=== PATIENT | male | born 1970 | race Caucasian/White ===

== ENCOUNTER 2022-05-01 06:20 | Inpatient (IN) | payer BC ==
[2022-04-25 11:24] LABS: BASOPHILS % (AUTO) 0.6 % (0-1); EOSINOPHILS # (AUTO) 0.2 X10'3 (0-0.9); EOSINOPHILS % (AUTO) 2.6 % (0-6); LYMPHOCYTES # (AUTO) 2.1 X10'3 (1.1-4.8); LYMPHOCYTES % (AUTO) 27.7 % (21-51); MEAN CORPUSCULAR HEMOGLOBIN 29.6 PG (27.0-31.0); MEAN CORPUSCULAR HGB CONC 33.9 g/dL (33.0-36.5); MEAN CORPUSCULAR VOLUME 87.2 FL (78-98); MEAN PLATELET VOLUME 9.5 FL (7.4-10.4); MONOCYTES # (AUTO) 0.6 X10'3 (0-0.9); MONOCYTES % (AUTO) 8.2 % (2-12); NEUTROPHILS # (AUTO) 4.7 X10'3 (1.8-7.7); NEUTROPHILS % (AUTO) 60.9 % (42-75); PRE OP HEMATOCRIT 46.4 % (42.0-52.0); PRE OP HEMOGLOBIN 15.7 g/dL (14.0-17.9); PRE OP PLATELET COUNT 214 X10'3 (140-440); RED BLOOD COUNT 5.32 X10'6 (4.70-6.10); RED CELL DISTRIBUTION WIDTH 13.3 % (11.5-14.5)
[2022-04-25 11:35] LABS: BLOOD UREA NITROGEN 16 MG/DL (7-18); CHLORIDE 104 MMOL/L (99-107); CREATININE 0.94 MG/DL (0.60-1.10); PRE OP ANION GAP 8 (8-16); PRE OP GLUCOSE 148 MG/DL (70-104); PRE OP POTASSIUM 4.2 MMOL/L (3.4-5.1); PRE OP SODIUM 140 MMOL/L (135-145); TOTAL CARBON DIOXIDE 27.9 MMOL/L (24-32)
[2022-04-25 11:36] LABS: ALBUMIN 3.9 G/DL (3.4-5.0); ALKALINE PHOSPHATASE 67 IU/L (46-116); CALCIUM 9.1 MG/DL (8.5-10.1); PRE OP ALT 31 U/L (30-65); PRE OP AST 21 U/L (10-37); PRE OP BILIRUB, TOTAL 0.5 MG/DL (0.0-1.0); TOTAL PROTEIN 7.7 G/DL (6.4-8.2); eGFR 84 ML/MIN
[2022-05-01] VITALS (21 sets, daily range): BP systolic 122–159; BP diastolic 72–99
[~2022-05-01] VITALS: Ht 193 cm; Wt 123.8 kg
[~2022-05-01 06:20] MED LIST: NO HOME MEDS; acetaminophen 325mg tablet PO ONE; ceFAZolin inj. 3,000 MG in normal saline 100ml IV soln 100 ML IV ONE; celeCOXIB 100mg capsule PO ONE; famotidine 20mg tablet PO ONE; gabapentin 300mg capsule PO ONE; metoclopramide 5 mg/ml inj IV ONE; oxyCODONE SR 10mg (sust. release) tab -2 tabs (20mg) PO ONE; ringers solution, lacted 1,000 ML IV SCH; tranexamic acid inj. 1,000 MG in 0.7% saline 100 ML PMX IV ONE; vancomycin 1,500 MG in NS 300ml IV soln IV ONE
--- NOTE | 2022-05-01 06:24 | NUR ---
Patient in room [facility]TH[facility] 4015A. I have received report from JAVIER WALTER and had the opportunity to ask questions and assume patient care.
--- NOTE | 2022-05-01 06:30 | NUR ---
CSM:PEDAL PULSES PRESENT, MARKED. SKIN PINK WARM DRY AND INTACT. PATIENT DID NOT KNOW ANYTHING ABOUT THE MUPIROCIN CREAM AND DID NOT USE IT. THE PATIENT STATES THEY DID WATCH THE VIDEO. PATIENT EDUCATED ON THE INCENTIVE SPIROMETER USE AND ITS IMPORTANCE. IV INITIATED NO COMPLICATIONS. ANOTHER RN CHECKED THE IV. VANCO WAS STARTED. WATCHED FOR TWO DRIPS TO VERIFY VANCO IS RUNNING.
[2022-05-01] MEDS ORDERED: naloxone 0.4 mg/ml inj IV PRN (06:55)
[2022-05-01] MEDS ORDERED: acetaminophen 325mg tablet PO PRN (06:55)
[2022-05-01] MEDS ORDERED: magnesium hydroxide 30ml (MOM) UD suspension PO PRN (06:55)
[2022-05-01] MEDS ORDERED: potassium cl 20mEq in 1/2 NS 1,000 ML IV SCH (06:55)
[2022-05-01] MEDS ORDERED: bisacodyl 10mg suppository rectal RC PRN (06:55)
[2022-05-01] MEDS ORDERED: diphenhydrAMINE 25mg capsule PO PRN ×2 (06:55)
[2022-05-01] MEDS ORDERED: HYDROcodone/acetaminophen 10/325mg tab PO PRN ×2 (06:55)
[2022-05-01] MEDS ORDERED: HYDROmorphone inj. 0.5 MG/0.5 ML DISP.SYRIN IV PRN (06:55)
[2022-05-01] MEDS ORDERED: ondansetron/PF 4mg/2ml inj IV PRN ×2 (06:55→10:10)
[2022-05-01] MEDS ORDERED: HYDROmorphone 1 mg/ml syringe IV PRN (06:55)
[2022-05-01] MEDS: multivitamins, therapeutics tablet PO SCH (08:00)
[2022-05-01] MEDS ORDERED: ceFAZolin/D5W- 1GM premix 50 ML IV SCH (08:00)
[2022-05-01] MEDS: ascorbic acid 500mg tablet PO SCH ×2 (08:00→19:35)
[2022-05-01] MEDS ORDERED: cloNIDine hcl/PF 100mcg/ml inj ONE (08:22)
[2022-05-01] MEDS ORDERED: ketorolac trometh. 30mg/ml inj. ONE (08:22)
[2022-05-01] MEDS ORDERED: epiNEPHrine 1 mg/ml inj ONE (08:22)
[2022-05-01] MEDS ORDERED: vancomycin 1,000mg inj ONE (08:22)
[2022-05-01] MEDS ORDERED: ROPIVAcaine 0.5% (5mg/ml) 30ml vial ONE (08:22)
[2022-05-01] MEDS: aspirin 325mg tablet PO SCH (08:30)
[2022-05-01] MEDS ORDERED: MIDAZolam 1 MG/ML 5ML VIAL ONE (08:50)
[2022-05-01] MEDS ORDERED: fentaNYL/PF 50MCG/1 ML 2ML syringe ONE (08:50)
[2022-05-01] MEDS ORDERED: morphine 2 MG/ML inj. syringe IV PRN (10:10)
[2022-05-01] MEDS ORDERED: proCHLORperazine 10 MG/2 ml inj IV PRN (10:10)
[2022-05-01] MEDS ORDERED: morphine 4 MG/ML inj SYRINge IV PRN (10:10)
[2022-05-01] MEDS ORDERED: ringers solution, lacted 1,000 ML IV SCH (10:10)
[2022-05-01] MEDS ORDERED: meperidine/PF 25mg/ml syringe IV PRN ×3 (10:10)
[2022-05-01] MEDS ORDERED: diphenhydrAMINE 50 mg/ml inj ONE (10:36)
[2022-05-01] MEDS ORDERED: propofol inj 20 ML IV ONE (10:36)
--- NOTE | 2022-05-01 11:00 | NUR ---
Received from OR via BED, accompanied by Anesthesiologist DR ALEXANDER and report given by Anesthesiologist AND DESKIDDING MACHINE OPERATOR. PT DROWSY, DENIES PAIN, RIGHT HIP/UPPER THIGH W/TELFA DRSG CDI, RIGHT KNEE W/LEG BRACE AND FELISHA DRAIN W/GREEN LIGHT ILLUMINATION. POWDER PACK IN PLACE. Addendum: 05/01/22 at 1144 by Heidi Delgado RN Amended: Links added.
--- NOTE | 2022-05-01 12:50 | NUR ---
Report called to receiving nurse. PT COMFORTABLE. Transferred via BED W/1 BAG OF Belongings SENT W/PT TO ROOM [facility]. BLL, CALL LIGHT GIVEN, SIDE RAILS UP X 2, PRESENT. RECEIVING RN AT BEDSIDE TO RECEIVE PT. Special Issues communicated to receiving nurse. Addendum: 05/01/22 at 1306 by Heidi Delgado RN Amended: Links added.
[2022-05-01] MEDS: gabapentin 300mg capsule PO SCH ×3 (13:00→19:35)
[2022-05-01] MEDS ORDERED: tranexamic acid inj. 1,250 MG in normal saline 100ml IV soln 87.5 ML IV ONE (14:00)
--- NOTE | 2022-05-01 15:52 | NUR ---
Still awaiting for Tranexamic Acid IV, I called pharmacy about this.
--- NOTE | 2022-05-01 17:55 | NUR ---
Patient has not urinated yet since he came to his room from Recovery Room. Bladder scan showed >262 ml. Will monitor Addendum: 05/01/22 at 1756 by France Valero RN Patient stated he would try to drink more water to see if it helps.
--- NOTE | 2022-05-01 19:15 | NUR ---
Endorsed to rn shift mgr nurse (WINDOWS SECURITY ENGINEER)and the resource nurse JOSE ANGEL Constantino that Cefazolin has not given yet due to delay in infusing Tranexamic acid. Vira WALTER told me it was still infusing at this time.
[2022-05-01] MEDS: cefazolin/dext.iso 2gm/100ml 100 ML IV SCH (19:54)
[2022-05-01] MEDS ORDERED: vancomycin inj 1,750 MG in normal saline 500ml IV soln 350 ML IV ONE (20:00)
[2022-05-01] MEDS ORDERED: sennosides 8.6mg tablet PO SCH (21:00)
[2022-05-02] MEDS: cefazolin/dext.iso 2gm/100ml 100 ML IV SCH (00:03)
[2022-05-02] MEDS ORDERED: potassium cl 20mEq in 1/2 NS 1,000 ML IV SCH (03:50)
--- NOTE | 2022-05-02 04:07 | NUR ---
reviewed and agree with COMPOSITION MIXER assessment.
[2022-05-02 06:00] VITALS: BP 138/87
--- NOTE | 2022-05-02 06:44 | NUR ---
Patient in room ORTHO 4015. I have received report from JAVI Molina and had the opportunity to ask questions and assume patient care.
[2022-05-02 07:40] LABS: BASOPHILS % (AUTO) 0.4 % (0-1); EOSINOPHILS # (AUTO) 0.2 X10'3 (0-0.9); EOSINOPHILS % (AUTO) 2.2 % (0-6); HEMATOCRIT 36.9 % (42.0-52.0); HEMOGLOBIN 12.6 g/dl (14.0-17.9); LYMPHOCYTES # (AUTO) 1.4 X10'3 (1.1-4.8); LYMPHOCYTES % (AUTO) 17.8 % (21-51); MEAN CORPUSCULAR HEMOGLOBIN 30.1 PG (27.0-31.0); MEAN CORPUSCULAR HGB CONC 34.2 g/dL (33.0-36.5); MEAN CORPUSCULAR VOLUME 87.8 FL (78-98); MEAN PLATELET VOLUME 9.2 FL (7.4-10.4); MONOCYTES # (AUTO) 0.7 X10'3 (0-0.9); MONOCYTES % (AUTO) 9.7 % (2-12); NEUTROPHILS # (AUTO) 5.4 X10'3 (1.8-7.7); NEUTROPHILS % (AUTO) 69.9 % (42-75); PLATELET COUNT 146 X10'3 (140-440); RED CELL DISTRIBUTION WIDTH 13.2 % (11.5-14.5); WHITE BLOOD COUNT 7.7 X10'3 (4.5-11.0)
[2022-05-02 07:48] LABS: ANION GAP 7 (8-16); CHLORIDE 106 MMOL/L (99-107); SODIUM 138 MMOL/L (135-145); TOTAL CARBON DIOXIDE 25.2 MMOL/L (24-32)
[2022-05-02] MEDS: multivitamins, therapeutics tablet PO SCH (08:48)
[2022-05-02] MEDS: ascorbic acid 500mg tablet PO SCH (08:48)
[2022-05-02] MEDS: aspirin 325mg tablet PO SCH (08:48)
[2022-05-02] MEDS: gabapentin 300mg capsule PO SCH (08:48)
[2022-05-02 10:00] VITALS: BP 117/74
--- NOTE | 2022-05-02 12:48 | NUR ---
Patient was discharged at 1045 with instructions and verbalizing understanding of instructions, in wheelchair accompanied by nursing staff and spouse. Patient was going home via private vehicle. All lines including IV with cannula intact have been removed. Education has been provided at bedside and all questions have been answered. Patient already has a follow up appointment with Dr. Krueger. Patient is stable and appropriate for discharge.
[2022-05-02] MEDS ORDERED: celeCOXIB 100mg capsule PO SCH (20:00)
== END 2022-05-02 10:58 | disposition home or self-care (01) | DRG 470 ==
LOC: PAS 06:20 → PAS IN 06:56 → ORTHO 4S 12:50
PROVIDERS: ADMIT Orthopaedic Surgery; ATTEND Orthopaedic Surgery
PROC: 0SR906Z Replacement of Right Hip Joint with Oxidized Zirconium on Polyethylene Synthetic Substitute, Open Approach (ICD-10-PCS; principal; 2022-05-01 09:22)
DX: M16.11 Unilateral primary osteoarthritis, right hip (principal)
CPT/HCPCS: Z7506; Z7508; 36415; 72170; 80051; 80053; 82948; 85025; 86885; 86900; 86901; 87081; 87635; 97110; 97116; 97161; 97530; A7000; C1776; C9803; G0378; J0171; J0690; J0735; J1170; J1200; J1885; J2250; J2704; J2765; J2795; J3010; J3370; J3480; J3490; J7040; J7120